=== PATIENT | male | born 1980 | race Hispanic/Latino ===

== ENCOUNTER 2020-10-17 04:20 | Emergency (ER) | payer MEDICAID ==
[2020-10-17] MEDS ORDERED: LORAZEPAM 2 MG/ML 1 ML VIAL ONE (04:44)
[2020-10-17 06:24] LABS: BILIRUBIN,TOTAL 0.4 mg/dL (0.2-1.0); CREATININE 1.1 mg/dL (0.5-1.5); CRP QUANTITATIVE 3.7 mg/L (0.00-9.0); MAGNESIUM 2.1 mg/dL (1.80-2.40); POTASSIUM 3.6 mmol/L (3.5-5.1); TOTAL PROTEIN, SERUM 7.7 g/dL (6.0-8.3)
[2020-10-17 06:41] LABS: APPEARANCE,URINE Clear (CLEAR); BILIRUBIN,URINE Negative (NEGATIVE); COLOR,URINE Yellow (YELLOW); GLUCOSE, URINE (UA) Negative (NEGATIVE); KETONES,URINE Trace mg/dL (NEGATIVE); LEUKOCYTE ESTERASE ,URINE Negative (NEGATIVE); NITRATE,URINE Negative (NEGATIVE); OCCULT BLOOD,URINE Negative (NEGATIVE); PH,URINE 6.5 (5.0-8.0); PROTEIN,URINE Negative (NEGATIVE)
[2020-10-17 06:42] LABS: AMPHET/METH SCREEN,URINE NEGATIVE (NEGATIVE); BARBITURATE SCREEN, URINE NEGATIVE (NEGATIVE); BENZODIAZEPINES SCREEN,URINE NEGATIVE (NEGATIVE); CANNABINOID SCREEN,URINE POSITIVE (NEGATIVE); COCAINE SCREEN,URINE POSITIVE (NEGATIVE); OPIATE SCREEN,URINE NEGATIVE (NEGATIVE); PHENCYCLIDINE SCREEN,URINE NEGATIVE (NEGATIVE)
== END 2020-10-17 12:33 | disposition home or self-care (01) ==
LOC: EDH 04:20
DX: F19.10 Other psychoactive substance abuse, uncomplicated (principal); Z20.828 Contact with and (suspected) exposure to other viral communicable diseases; F32.9 Major depressive disorder, single episode, unspecified; I10 Essential (primary) hypertension; Z72.0 Tobacco use
CPT/HCPCS: 36415; 71045; 80053; 80305; 81003; 83605 ×2; 83735; 86140; 87426; 93005; 96361; 96374; 99285; J2060

== ENCOUNTER 2025-03-31 10:01 | Emergency (ER) | payer MEDICAID ==
[~2025-03-31] VITALS: Ht 162.6 cm; Wt 90.7 kg
[2025-03-31 10:29] LABS: BASOPHILS # (AUTO) 0.09 K/uL (0.00-0.20); BASOPHILS % (AUTO) 0.8 % (0.0-5.0); EOSINOPHILS # (AUTO) 0.23 K/uL (0.00-0.70); EOSINOPHILS % (AUTO) 2.1 % (0.0-8.0); HEMATOCRIT 42.7 % (42-54); IMMATURE GRANULOCYTE ABSOLUTE 0.07 K/uL (0-1); LYMPHOCYTES # (AUTO) 3.3 K/uL (1.0-4.8); LYMPHOCYTES % (AUTO) 29.7 % (21.0-51.0); MEAN CORPUSCULAR HEMOGLOBIN 30.2 pg (27.0-33.0); MEAN CORPUSCULAR HGB CONC 33.5 g/dL (32.0-36.0); MEAN CORPUSCULAR VOLUME 90.3 fL (79-99); MONOCYTES # (AUTO) 0.9 K/uL (0.1-1.0); MONOCYTES % (AUTO) 7.8 % (3.0-13.0); NEUTROPHILS # (AUTO) 6.5 K/uL (1.8-7.7); PLATELET COUNT (AUTO) 282 K/uL (130-400); RED BLOOD CELL COUNT(AUTO) 4.73 MIL/uL (4.50-6.20)
--- NOTE | 2025-03-31 10:32 | EKG ---
[facility] Test Date: 2025-03-31 Test Time: 10:30:37 Pat Name: LOU GRANT Department: [facility] Room: Gender: M Relief Manager: [id number] : 1980 Requested By: DORINDA CANO Order Number: [id number] Reading MD: Demar Duke Measurements Intervals [place] Rate: 66 P: 23 MN: 137 QRS: -1 QRSD: 97 T: 25 QT: 442 QTc: 463 Interpretive Statements Sinus rhythm Compared to ECG 10/17/2020 04:46:02 No significant changes Electronically Signed On 03-31-2025 21:33:08 CDT by Demar Duke Please click the below link to view image of tracing.
[2025-03-31 10:37] LABS: CREATININE 0.9 mg/dL (0.5-1.3); POTASSIUM 4.1 mmol/L (3.5-5.1)
[2025-03-31 10:39] LABS: INR 0.97 (0.85-1.15); PROTHROMBIN TIME 10.3 SEC (9.6-11.6)
[2025-03-31 10:40] LABS: PARTIAL THROMBOPLASTIN TIME 28.4 SEC (26.3-35.5)
[2025-03-31] MEDS: hydrOXYzine 50MG VIAL 50 MG/ML VIAL IM ONE (10:46)
[2025-03-31] MEDS: LACTATED RINGERS 1000ML 1,000 ML IV ONE (10:50)
[2025-03-31 10:52] LABS: B-TYPE NATRIURETIC PEPTIDE 43 pg/mL (0-100)
--- NOTE | 2025-03-31 11:21 | HMCIMG ---
Exam Type: CHEST 1VW Clinical Information: CP Comparison: None Findings: The lungs are clear of infiltrates. The heart is normal in size. The bony and soft tissue structures of the chest are unremarkable. Impression: Clear lungs.
[2025-03-31 11:22] LABS: AMPHET/METH SCREEN,URINE NEGATIVE (NEGATIVE); BARBITURATE SCREEN, URINE NEGATIVE (NEGATIVE); BENZODIAZEPINES SCREEN,URINE NEGATIVE (NEGATIVE); CANNABINOID SCREEN,URINE POSITIVE (NEGATIVE); COCAINE SCREEN,URINE POSITIVE (NEGATIVE); OPIATE SCREEN,URINE NEGATIVE (NEGATIVE); PHENCYCLIDINE SCREEN,URINE NEGATIVE (NEGATIVE)
--- NOTE | 2025-03-31 13:14 | ERN ---
General Chief Complaint: Anxiety/Panic Attack Stated Complaint: ANXIETY Time Seen by MD: 10:04 Source: patient History of Present Illness Initial Comments PATIENT IS A 44-YEAR-OLD MALE WITH A EXTENSIVE HISTORY OF PSYCHIATRIC ISSUES. HE WAS BEING EVALUATED BY [facility] AND WAS SENT OVER DUE TO ANXIETY ATTACK HE PRESENTED WITH. PER [facility]ENT[facility]ALTH FACILITY PATIENT IS TO BE CLEARED FOR INPATIENT PSYCH EVALUATION. Allergies: Coded Allergies: No Known Allergies (Unverified Allergy, Unknown, 03/30/25) Past Medical History Past Medical History: Bipolar, Diabetes-Type II, Hypertension Past Surgical History: None ROS Dictation CONSTITUTIONAL: NO CHILLS, NO FEVER, NO WEAKNESS, NO DIAPHORESIS, NO MALAISE. HEAD/FACE: NO SIGNS OF TRAUMA. EENT: NO EYE PAIN, NO BLURRED VISION, NO TEARING, NO DOUBLE VISION, NO EAR PAIN, NO EAR DISCHARGE, NO NOSE PAIN, NO NASAL CONGESTION, NO THROAT PAIN, NO THROAT SWELLING, NO MOUTH PAIN. RESPIRATORY: NO COUGH, NO ORTHOPNEA, NO SOB, NO STRIDOR, NO WHEEZING. CARDIOVASCULAR: NO CHEST PAIN, NO EDEMA, NO PALPITATIONS, NO SYNCOPE. GASTROINTESTINAL/ABDOMINAL: NO ABDOMINAL PAIN, NO CONSTIPATION, NO DIARRHEA, NO NAUSEA, NO VOMITING. GENITOURINARY: NO ABNORMAL DISCHARGE, NO DYSURIA, NO FREQUENT URINATION, NO HEMATURIA. NO COMPLAINTS OF PAIN IN THE GENITALS. MUSCULOSKELETAL: NO BACK PAIN, NO GOUT, NO JOINT PAIN, NO JOINT SWELLING, NO MUSCLE PAIN, NO MUSCLE STIFFNESS, NO NECK PAIN. INTEGUMENTARY: NO CHANGE IN COLOR, NO CHANGE IN HAIR/NAILS, NO DRYNESS, NO LESION, NO LUMPS, NO RASH. NEUROLOGICAL/PSYCH: NO ANXIETY, NOT DEPRESSED, NO EMOTIONAL PROBLEM, NO HEADACHE, NO NUMBNESS, NO PRE-EXISTING DEFICIT, NO HISTORY OF SEIZURES, NO TREMORS, NO WEAKNESS. HEMATOLOGIC/LYMPHATIC: NOT ANEMIC, NO HISTORY OF BLOOD CLOTS, NO APPARENT BLEEDING, NO BRUISING, GLANDS NOT SWOLLEN. ALL SYSTEMS NEGATIVE, EXCEPT NOTED. Physical Exam Physical Exam Dictation VITAL SIGNS: REVIEWED. GENERAL APPEARANCE: ALERT, ORIENTED X3, NO ACUTE DISTRESS, OBESE. HEAD AND FACE: NON-TRAUMATIC. EYES: PERRL, PINK CONJUNCTIVAS, EYELID NO TRAUMA, ANTERIOR CHAMBER CLEAR. EARS: PINNAS INTACT AND NO SIGNS OF TRAUMA OR ERYTHEMA. EAR CANALS CLEAR AND NO DISCHARGE. TMS NO ERYTHEMA. NOSE: NO DISCHARGE, NO BLEEDING. OROPHARYNX: MOUTH NORMAL, TEETH NO CARIES, TONGUE PINK. PHARYNX CLEAR, NO ERYTHEMA. TONSILS NO EXUDATES, NO ABSCESSES NOTED. MUCOUS MEMBRANE MOIST. NECK: SUPPLE, NON-TENDER, NO THYROMEGALY, NO MASSES, NO JVD, NO BRUITS. BREAST: DEFERRED. CHEST: NO TENDERNESS, NO CREPITUS, NO PARADOXICAL MOVEMENT, NO RETRACTIONS. LUNGS: CLEAR, WELL-VENTILATED, SYMMETRIC, NO RALES, NO WHEEZING, NO RHONCHI, NO STRIDOR, GOOD BREATH SOUNDS BILATERALLY. HEART: REGULAR RATE, REGULAR RHYTHM, NO MURMUR, NO GALLOPS. VASCULAR: NO PERIPHERAL EDEMA. ABDOMEN: SOFT, POSITIVE BOWEL SOUNDS, NONDISTENDED, NO GUARDING, NONTENDER, NO REBOUND, NO MASSES NO HEPATOMEGALY, NO SPLENOMEGALY, NO GARDUNO'S SIGN, NO HERNIAS. RECTAL: DEFERRED. GENITAL: DEFERRED. NEUROLOGICAL: NORMAL SPEECH, GROSS MOTOR FUNCTION INTACT, GROSS SENSORY FUNCTION INTACT. MUSCULOSKELETAL: NECK NONTENDER, FULL RANGE OF MOTION, BACK NONTENDER, FULL RANGE OF MOTION. EXTREMITIES: NONTENDER, FULL RANGE OF MOTION. SKIN: COLOR PINK, DRY, NO TURGOR, NO RASH, NO LACERATIONS, NO ABRASIONS, NO CONTUSIONS. LYMPHATICS: DEFERRED. Results Laboratory and Microbiology Lab and Micro Result Laboratory Tests Test 03/31/25 10:23 03/31/25 11:00 White Blood Count 11.0 K/uL (4.8-10.8) H Red Blood Count 4.73 MIL/uL (4.50-6.20) Hemoglobin 14.3 g/dL (14.0-18.0) Hematocrit 42.7 % (42-54) Mean Corpuscular Volume 90.3 fL (79-99) Mean Corpuscular Hemoglobin 30.2 pg (27.0-33.0) Mean Corpuscular Hemoglobin Concent 33.5 g/dL (32.0-36.0) Red Cell Distribution Width 13.0 % (11.0-15.5) Platelet Count 282 K/uL (130-400) Mean Platelet Volume 10.5 fL (7.5-10.5) Immature Granulocyte % (Auto) 0.6 % (0-1) Neutrophils (%) (Auto) 59.0 % (40.0-77.0) Lymphocytes (%) (Auto) 29.7 % (21.0-51.0) Monocytes (%) (Auto) 7.8 % (3.0-13.0) Eosinophils (%) (Auto) 2.1 % (0.0-8.0) Basophils (%) (Auto) 0.8 % (0.0-5.0) Neutrophils # (Auto) 6.5 K/uL (1.8-7.7) Lymphocytes # (Auto) 3.3 K/uL (1.0-4.8) Monocytes # (Auto) 0.9 K/uL (0.1-1.0) Eosinophils # (Auto) 0.23 K/uL (0.00-0.70) Basophils # (Auto) 0.09 K/uL (0.00-0.20) Absolute Immature Granulocyte (auto 0.07 K/uL (0-1) Nucleated Red Blood Cells 0.0 % (0.0-0.19) Prothrombin Time 10.3 SEC (9.6-11.6) Prothromb Time International Ratio 0.97 (0.85-1.15) Activated Partial Thromboplast Time 28.4 SEC (26.3-35.5) Sodium Level 139 mmol/L (136-145) Potassium Level 4.1 mmol/L (3.5-5.1) Chloride Level 104 mmol/L (101-111) Carbon Dioxide Level 32 mmol/L (21-32) Blood Urea Nitrogen 6 mg/dL (7-18) L Creatinine 0.9 mg/dL (0.5-1.3) Glomerular Filtration Rate Calc 107 mL/min (>90) Random Glucose 112 mg/dL (70-105) H Total Calcium 8.2 mg/dL (8.5-10.1) L Magnesium Level 2.00 mg/dL (1.80-2.40) Total Creatine Kinase 332 U/L (21-232) H Troponin I High Sensitivity 7 ng/L (4-75) B-Type Natriuretic Peptide 43 pg/mL (0-100) Urine Opiates Screen NEGATIVE (NEGATIVE) Urine Barbiturates Screen NEGATIVE (NEGATIVE) Urine Phencyclidine Screen NEGATIVE (NEGATIVE) Urine Amphetamines Screen NEGATIVE (NEGATIVE) Urine Benzodiazepines Screen NEGATIVE (NEGATIVE) Urine Cocaine Screen POSITIVE (NEGATIVE) H Urine Marijuana (THC) Screen POSITIVE (NEGATIVE) H Labs Reviewed?: Yes EKG/XRAY/US/CT/MRI EKG Comment 03/31/2025 TIME 10:30 A.M. VENTRICULAR RATE 66 SINUS RHYTHM [place] [address] WAVE ELEVATION OR DEPRESSION X-RAY Comment [facility] [address] [place], [place] [id number] IMAGING REPORT Signed PATIENT: LOU GRANT MR#: [id number] : 1980 SEX: M AGE: 44 LOCATION: [facility] ORDER 1011 STATUS: REG ER REPORT#: [id number] SERVICE [id number] REASON: CP ORDERING PHYSICIAN: DORINDA CANO MD PROCEDURE: CXR1VW - CHEST 1VW Exam Type: CHEST 1VW Clinical Information: CP Comparison: None Findings: The lungs are clear of infiltrates. The heart is normal in size. The bony and soft tissue structures of the chest are unremarkable. Impression: Clear lungs. DICTATED BY: PATT MILLAN MD DATE: 03/31/25 1118 ELECTRONICALLY SIGNED BY: PATT MILLAN MD DATE: 03/31/25 1121 MDM MDM: DIFFERENTIAL DIAGNOSIS: PSYCHIATRIC ILLNESS, POLYSUBSTANCE ABUSE, MEDICAL SCREEN, ANXIETY RATIONALE: TESTS CONSIDERED AND ORDERED SECONDARY TO SHARED DECISION MAKING INCLUDE: PREVIOUS OUTSIDE RECORDS REVIEWED: OLD ER VISITS. RISK OF COMPLICATION AND/OR MORBIDITY OR MORTALITY OF PATIENT MANAGEMENT: NONE PATIENT IS A 44-YEAR-OLD MALE COMING IN TO BE CLEARED FOR ONGOING PSYCHIATRIC EVALUATION. PER PSYCHIATRIC FACILITY PATIENT WAS SENT OVER DUE TO ANXIETY PRESENTATION AND ELEVATED BLOOD PRESSURE. THROUGHOUT ER VISIT PATIENT HAS BEEN STABLE LABORATORY WORKUP WITHIN NORMAL LIMITS. PATIENT STATES HE FEELS MUCH BETTER AND WE WILL BE DISCHARGED IN STABLE CONDITION TO [facility]. [facility] IS HERE FOR PATIENT AND WILL BE TAKING PATIENT TO [facility]. ED Course Orders Procedure Category Date Status Time Cbc With Differential LAB 03/31/25 Complete 10:09 Prothrombin Time With LAB 03/31/25 Complete INR 10:09 B-Type Natriuretic LAB 03/31/25 Complete Peptide 10:09 Chest 1vw RAD 03/31/25 Resulted 10:09 12 Lead Ekg Tracing- EKG 03/31/25 Complete Technical 10:09 Lactated Ringers PHA 03/31/25 Complete 1000ml (Lactated 10:30 Magnesium LAB 03/31/25 Complete 10:09 Creatine Kinase, Total LAB 03/31/25 Complete 10:09 Troponin I High LAB 03/31/25 Complete Sensitivity 10:09 Partial LAB 03/31/25 Complete Thromboplastin Time 10:09 Basic Metabolic Panel LAB 03/31/25 Complete 10:09 Drug Screen Urine LAB 03/31/25 Complete 10:09 Hydroxyzine 50mg Vial PHA 03/31/25 Complete (Atarax 50mg Inj) 11:00 Heart Healthy Diet DIET 03/31/25 Transmitted Lunch Current Medications Medications (Trade) Dose Ordered Sig/Gage Route PRN Reason Start Time Stop Time Status Last Admin Dose Admin Hydroxyzine HCl (ATArax 50MG INJ) 50 mg ONCE ONCE IM 03/31/25 11:00 03/31/25 11:01 DC 03/31/25 10:46 Lactated Ringer's 1,000 ml @ 0 mls/hr ONCE ONCE IV 03/31/25 10:30 03/31/25 10:31 DC 03/31/25 10:50 Vital Signs Date Time Temp Pulse Resp B/P (MAP) Pulse Ox O2 Delivery O2 Flow Rate FiO2 03/31/25 11:24 98.4 71 20 154/81 96 Room Air* 0 21 03/31/25 10:23 98.2 80 18 187/79 99 Room Air 0 DX & DISP Disposition: Discharge Departure Impression: Primary Impression: Polysubstance abuse Additional Impressions: Anxiety, Psychiatric illness Condition: Stable Additional Instructions: PATIENT WILL BE DISCHARGED IN STABLE CONDITION AND WE WILL BE TAKEN BACK TO [facility] WITH [facility]. Referrals: LONA NIETO (PCP) Time of Disposition: 14:07 DORINDA CANO MD March 31, 2025 13:14
[2025-03-31 14:06] VITALS: BP 153/85; PULSE 77; RESP 18; TEMP 97.9; O2SAT 97
== END 2025-03-31 14:28 | disposition home or self-care (01) ==
LOC: EDH 10:01
DX: F19.10 Other psychoactive substance abuse, uncomplicated (principal); F41.9 Anxiety disorder, unspecified; E11.9 Type 2 diabetes mellitus without complications; I10 Essential (primary) hypertension; F99 Mental disorder, not otherwise specified
CPT/HCPCS: 99285; 96360; 96361; 71045; 82550; 83735; 84484; 80048; 83880; 80305; 85025; 85610; 85730; 36415; 93005; 96372; J7120; J3410